=== PATIENT | female | born 1955 | race African-American/Black ===

== ENCOUNTER 2017-01-06 07:05 | Emergency (ER) | payer MEDICAID, OTHER ==
[~2017-01-06] VITALS: Ht 154.9 cm; Wt 136.1 kg
--- NOTE | 2017-01-06 07:10 | NUR ---
BIBA BLS TO ER BED 3
--- NOTE | 2017-01-06 07:12 | NUR ---
61/F BIBA C/O HEADACHE X 2 DAYS.PT DENIES N/V/D; SKIN IS PINK/WARM/DRY; AAOX4 WITH EVEN AND STEADY GAIT; LUNGS CLEAR BL; HR EVEN AND REGULAR; PT DENIES ANY FEVER, CP, SOB, OR COUGH AT THIS TIME; PATIENT STATES PAIN OF 8/10 AT THIS TIME; PATIENT POSITIONED FOR COMFORT; HOB ELEVATED; BEDRAILS UP X2; BED DOWN. ER MD MADE AWARE OF PT STATUS.
[2017-01-06 07:15] VITALS: BP 130/62
--- NOTE | 2017-01-06 07:24 | NUR ---
DR. LORENZANA EVALUATING PT AT BEDSIDE.
[2017-01-06] MEDS ORDERED: KETOROLAC 60 MG/2 ML VIAL IM ONE (07:50)
--- NOTE | 2017-01-06 08:09 | NUR ---
PT STATES NOT READY TO GIVE URINE SAMPLE. WATER OFFERED. WILL CONTINUE TO MONITOR.
[2017-01-06 09:00] VITALS: BP 125/79
--- NOTE | 2017-01-06 09:00 | NUR ---
Patient discharged with v/s stable. Written and verbal after care instructions given and explained. Patient alert, oriented and verbalized understanding of instructions. Ambulatory with steady gait. All questions addressed prior to discharge. ID band removed. Patient advised to follow up with PMD. Rx of SIMVASTATIN given. Patient educated on indication of medication including possible reaction and side effects. Opportunity to ask questions provided and answered.
== END 2017-01-06 09:00 | disposition home or self-care (01) ==
LOC: MED 07:49
DX: R51 Headache (principal); Z88.0 Allergy status to penicillin
CPT/HCPCS: 81002; 81025; 96372; 99283; J1885